=== PATIENT | female | born 1965 | race Caucasian/White ===

== ENCOUNTER → 2017-01-10 | Outpatient (CLI) | payer BC | LOC: MC.RAD 16:00 | DX: Z12.31 Encounter for screening mammogram for malignant neoplasm of breast (principal) ==

== ENCOUNTER 2017-04-23 19:24 | Emergency (ER) | payer BC ==
[~2017-04-23] VITALS: Ht 162.6 cm; Wt 68.2 kg
[2017-04-23 19:31] VITALS: BP 139/83; TEMP 97.9
[2017-04-23] MEDS ORDERED: FLEXERIL5 MG PO (21:10)
[2017-04-23 21:56] VITALS: PULSE 60
== END 2017-04-23 21:56 | disposition home or self-care (01) ==
LOC: COL.ER 19:24
DX: S76.911A Strain of unspecified muscles, fascia and tendons at thigh level, right thigh, initial encounter (principal); I10 Essential (primary) hypertension; X50.1XXA Overexertion from prolonged static or awkward postures, initial encounter; Y92.009 Unspecified place in unspecified non-institutional (private) residence as the place of occurrence of the external cause
CPT/HCPCS: J1885; J2360

== ENCOUNTER → 2018-06-08 | Outpatient (CLI) | payer BC ==
[~2018-06-08] MED LIST: FLEXERIL5 MG PO
== END ==
LOC: MC.RAD 15:14
DX: Z12.31 Encounter for screening mammogram for malignant neoplasm of breast (principal)

== ENCOUNTER 2019-05-03 22:39 | Emergency (ER) | payer BC ==
[~2019-05-03] VITALS: Ht 162.6 cm; Wt 68.2 kg
[2019-05-03 22:47] VITALS: BP 124/74; PULSE 81; TEMP 98.7
[2019-05-03] MEDS ORDERED: ZESTRIL 10MG10 MG PO (23:17)
[2019-05-03] MEDS ORDERED: SINGULAIR 110 MG/TAB PO (23:18)
[2019-05-03] MEDS ORDERED: ZYRTEC 10MG10 MG PO (23:18)
== END 2019-05-03 23:23 | disposition home or self-care (01) ==
LOC: COL.ER 22:39
DX: M70.62 Trochanteric bursitis, left hip (principal)

== ENCOUNTER → 2019-10-29 | Outpatient (CLI) | payer BC ==
[~2019-10-29] MED LIST changes: +SINGULAIR 110 MG/TAB PO; +ZESTRIL 10MG10 MG PO; +ZYRTEC 10MG10 MG PO
== END ==
LOC: MC.RAD 16:46
DX: Z12.31 Encounter for screening mammogram for malignant neoplasm of breast (principal)

== ENCOUNTER → 2022-09-09 | Outpatient (CLI) | payer BC | LOC: MC.RAD 06:51 | DX: Z12.31 Encounter for screening mammogram for malignant neoplasm of breast (principal) ==

== ENCOUNTER → 2023-11-10 | Outpatient (CLI) | payer BC | LOC: MC.RAD 14:45 | DX: Z12.31 Encounter for screening mammogram for malignant neoplasm of breast (principal) ==

== ENCOUNTER → 2023-12-12 | Outpatient (CLI) | payer BC | LOC: MC.RAD 08:16 | DX: N63.42 Unspecified lump in left breast, subareolar (principal) ==